=== PATIENT | male | born 1945 | race Caucasian/White ===

== ENCOUNTER 2016-05-21 19:54 | Observation (INO) | payer MEDICARE ==
[~2016-05-21] VITALS: Ht 175.3 cm; Wt 100.4 kg
[2016-05-22] MEDS ORDERED: LEXAPRO DPS10 MG PO (20:51)
[2016-05-22] MEDS ORDERED: ALTACE DPS10 MG PO (20:51)
[2016-05-22] MEDS ORDERED: ZOCOR DPS20 MG PO (20:51)
[2016-05-22] MEDS ORDERED: LOPRESSOR DPS50 MG PO (20:51)
[2016-05-22] MEDS ORDERED: SYMBICORT160 MCG/6 IH (20:52)
[2016-05-22] MEDS ORDERED: XANAX DPS0.25 MG PO (20:52)
[2016-05-22] MEDS ORDERED: PROVENTIL HFA6.7 GM IH (20:52)
[2016-05-22] MEDS ORDERED: HYDROCHLOROTHIA25 MG PO (20:52)
[2016-05-22] MEDS ORDERED: DELTASONE DPS20 MG PO (20:53)
[2016-05-22] MEDS ORDERED: DUONEB DPS3 ML IH (20:53)
[2016-05-22] MEDS ORDERED: LEVAQUIN DPS500 MG PO (20:54)
--- NOTE | 2016-06-02 21:14 | ER ---
ADMIT: 05/21/2016 RM/LOC: [facility] MR#: [id number] [id number] [place], [place] [id number] JULISSA RODRIGUEZ [address] [place] [address] Emergency Room Report SEX: M AGE: 71 : 1945 DATE: 05/21/2016 ADDENDUM: CHIEF COMPLAINT: Shortness of breath. HISTORY OF PRESENT ILLNESS: This is a 71-year-old who has a history of cardiac and pulmonary disease. Today, he continues to feel shortness of breath, worse with exertion. CMP was normal except for BUN of 26, glucose 129, GFR of 56. Cardiac enzymes and troponin are normal. CBC is normal. CT of his chest showed a nodule, but no pneumonia. No PE. Due to his hypoxia, I called Dr. Hart. He is admitting for COPD exacerbation. In admission to those labs, an EKG was done, over-read by Dr. Woodruff, showed sinus rhythm at a rate of 81. No significant ST elevation or depression. No signs of an MD. Again, Dr. Hart was called. He is admitting the patient. CLINICAL IMPRESSION: Chronic obstructive pulmonary disease exacerbation with hypoxia. Levaquin, Decadron, and DuoNeb have been done prior to admit. TERESITA Sargent / Felton Woodruff MD / modl JOB #: [id number] CC: Ciro Hart MD, Attending Physician Ciro Hart MD, Family Physician
== END 2016-05-22 17:00 | disposition home or self-care (01) ==
LOC: ER 19:54 → 5MS 22:05
PROVIDERS: ADMIT Family Medicine
DX: J44.9 Chronic obstructive pulmonary disease, unspecified (principal); R09.02 Hypoxemia; I10 Essential (primary) hypertension; F41.9 Anxiety disorder, unspecified; Z79.899 Other long term (current) drug therapy

== ENCOUNTER 2016-11-29 15:14 | Emergency (ER) | payer MEDICARE ==
--- NOTE | ~2016-11-29 | ER ---
ADMIT: 11/29/2016 RM/LOC: ER [facility] MR#: [id number] [address] [address] JULISSA RODRIGUEZ [address] [place] [address] Emergency Room Report SEX: M AGE: 71 : 1945 DATE: 11/29/2016 SUBJECTIVE: A 71-year-old with COPD, O2 dependent, comes to the Emergency Department with one-day worth of increasing shortness of breath. He notices increasing shortness of breath associated with him staying at home using the concentrator or when he takes the portable oxygen bottle with him. He is no longer short of breath. See T-sheet for remainder of history and physical. CBC was within normal parameters. CMP was significant for BUN of 27, glucose of 102. His chest x-ray showed no acute findings. DIAGNOSIS: Exacerbation of chronic obstructive pulmonary disease. Given a prescription for Medrol Dosepak and a Z-Jero. He was asked to have [employer] come and check the O2 concentrator at home to make sure that it is functioning appropriately. He is also instructed to follow up with his primary doctor this coming week and stop smoking pot. Michele Coon MD/ luis enrique JOB #: [id number] CC: Andrae Trivedi MD, Attending Physician UNKNOWN, Family Physician
[~2016-11-29 15:14] MED LIST: ALTACE DPS10 MG PO; DELTASONE DPS20 MG PO; DUONEB DPS3 ML IH; HYDROCHLOROTHIA25 MG PO; LEVAQUIN DPS500 MG PO; LEXAPRO DPS10 MG PO; LOPRESSOR DPS50 MG PO; PROVENTIL HFA6.7 GM IH; SYMBICORT160 MCG/6 IH; XANAX DPS0.25 MG PO; ZOCOR DPS20 MG PO
== END 2016-11-29 16:50 | disposition home or self-care (01) ==
LOC: ER 15:14
DX: J44.1 Chronic obstructive pulmonary disease with (acute) exacerbation (principal); I10 Essential (primary) hypertension; F41.9 Anxiety disorder, unspecified